=== PATIENT | female | born 1980 | race Caucasian/White ===

== ENCOUNTER 2020-03-28 01:48 | Emergency (ER) | payer BC, SELFPAY ==
--- NOTE | ~2020-03-28 | XR_ITS ---
EXAMINATION: XR ankle LT 2V DATE: 03/28/2020 02:24 INDICATION: Left ankle injury TECHNIQUE: Anteroposterior and lateral views of the left ankle were obtained. COMPARISON: None. FINDINGS: Alignment is normal. No fracture. Joint spaces are well maintained. No ankle joint effusion. The so ft tissues are unremarkable. IMPRESSION: 1. Negative left ankle radiographs. Reviewed, dictated and finalized at location A.
[2020-03-28 01:48] VITALS: BP 124/73; PULSE 75; RESP 20; TEMP 36.8; O2SAT 98
--- NOTE | 2020-03-28 02:12 | ED.LOWEXIN ---
HPI - Extremity Injury (Lower) General Chief Complaint: Extremity Injury, Lower Stated Complaint: Left foot pain Source: patient Mode of arrival: ambulatory Limitations: no limitations History of Present Illness HPI Narrative: This is a 39-year-old female that presents with left ankle pain, while lying in bed she stretched her foot and heard a pop in her left ankle and causing pain has decreased range of motion secondary to pain there is no swelling no bruising. complaint: ankle injury Onset (ago): hour(s) Type of Injury: unknown Place: home Severity: mild Relieving factors: nothing Exacerbating factors: weight bearing Related Data Home Medications Medication Instructions Recorded Confirmed No Home Medications 03/28/20 03/28/20 Allergies Allergy/AdvReac Type Severity Reaction Status Date / Time No Known Allergies Allergy Verified 03/28/20 02:04 Review of Systems Review of Systems: All systems reviewed & are unremarkable except as noted in HPI and below PMFSH Past Medical History Medical History Patient denies medical problems Exam Const: General: no acute distress and alert Orientation/consciousness: patient oriented x3 HENMT: Head: normal to inspection Eyes: Conjunctivae: conjunctivae normal Pupils: Equal, round and reactive pupils present Neck: Neck: normal visual inspection Chest: Chest palpation & inspection: normal inspection of the chest Resp: Effort & Inspection: normal respiratory effort Cardio: Rate: regular rate Rhythm: regular rhythm GI: GI Palp: Yes Soft to palpation : General: Yes no CVA tenderness Skin: General skin exam: normal color Rashes: no rashes Neuro: General: patient oriented x3, moves all extremities, no meningeal signs and no focal motor deficits Extrem: General: no pedal edema Other: Tender and Achilles area of her left heel Psych: Mental Status: mental status grossly normal Affect: normal affect Attitude: cooperative Critical Care Time Critical Care Time Critical Care Time: No Discharge Plan Discharge Clinical Impression: Ankle sprain and strain Patient Disposition: Home, Self-Care Condition: Stable Instructions: Antibiotic Form, Ankle Sprain (ED) Additional Instructions: Tylenol or Motrin for pain, follow-up with primary care physician if symptoms persist or worsen. Prescriptions: No Action No Home Medications RF: 0 Interventions: Discharge Disposition Last Done: 03/28/20 02:59 Follow-up/Referrals: Delores,Chandler Schumacher MD [Primary Care Provider] - Time of Disposition: 03:01
[2020-03-28 02:59] VITALS: BP 135/73; PULSE 75; RESP 20; O2SAT 98
--- NOTE | 2020-03-28 03:01 | PC.NURSE ---
discharge instructions reviewed page by page with pt.
== END 2020-03-28 03:03 | disposition home or self-care (01) ==
PROVIDERS: Emergency Provider Emergency Medicine; PCP Family Medicine
DX: S93.402A Sprain of unspecified ligament of left ankle, initial encounter (principal)
CPT/HCPCS: 73600; 99282; 99283

== ENCOUNTER 2025-08-17 13:01 | Emergency (ER) | payer OTHER, SELFPAY ==
--- NOTE | ~2025-08-17 | XR_ITS ---
Lumbar spine series Indication: Low back pain, no known injury Comparison: None Technique: 3 views lumbar spine Findings: 4 nonrib-bearing lumbar-type vertebral bodies. What should be L1 has rudimentary ribs. Chronic fracture right rib T12 No acute fracture. No listhesis. No pars defect. Vertebral bodies normal height. Disc spaces maintained. No significant degenerative changes. SI joints congruent. Distal sacral resection. IMPRESSION: 1. No acute findings. 2. Additional findings as above, including distal sacral resection. Reviewed, dictated and finalized at location R.
[2025-08-17 13:03] VITALS: BP 171/88; PULSE 86; RESP 20; TEMP 36.6; O2SAT 99
[2025-08-17] MEDS: methylPREDNISolone ACETATE 40 MG/ML VIAL 80 MG IM (13:28)
--- NOTE | 2025-08-17 13:51 | ED.BACK ---
HPI - Back Pain/Injury General Chief Complaint: Back Pain/Injury Stated Complaint: back pain Time Seen by Provider: 08/17/25 13:03 Source: patient and family Mode of arrival: ambulatory Limitations: no limitations History of Present Illness HPI Narrative: this is a 45-year-old female who presents with some low back pain right-sided and radiating to her right lower leg with no known injury no saddle paresthesias no neurological deficits no fever chills. The patient took some [id number] medication with minimal relief, rates her pain about 10/10 no injuries noted MD elicited complaint: back pain Pertinent past history: prior back pain Onset (ago): day(s) Timing: constant Severity: moderate Pain scale (0-10): 10 Quality: dull and spasming Location: lumbar spine Radiation: right upper leg Exacerbating factors: movement Relieving factors: immobilization Related Data Home Medications ?Medication ?Instructions ?Recorded ?Confirmed ?Last Taken ?Type clonazepam 1 mg tablet 1 mg PO Q12H 08/17/25 Unknown History cyclobenzaprine 10 mg tablet 10 mg PO Q12H 08/17/25 Unknown History escitalopram oxalate 20 mg tablet 20 mg PO DAILY 08/17/25 Unknown History furosemide 40 mg tablet 40 mg PO DAILY 08/17/25 Unknown History omeprazole 40 mg capsule,delayed 40 mg PO BID 08/17/25 Unknown History release Allergies Allergy/AdvReac Type Severity Reaction Status Date / Time cillins Allergy Intermediate Unknown Uncoded 08/17/25 13:16 Review of Systems Review of Systems: All systems reviewed & are unremarkable except as noted in HPI and below PMFSH Past Medical History Medical History (Updated 08/17/25 @ 13:54 by Seb Lozada MD) Patient denies medical problems Exam Const: General: healthy appearing and no acute distress Nutritional Appearance: well nourished and obese Orientation/consciousness: patient oriented x3 Limitations: no limitations Chest: Chest palpation & inspection: normal inspection of the chest Resp: Effort & Inspection: normal respiratory effort Auscultation: clear to auscultation bilaterally Cardio: Rate: regular rate Rhythm: regular rhythm GI: GI Palp: Yes Soft to palpation Auscultation: normal bowel sounds Neuro: General: patient oriented x3, moves all extremities, no meningeal signs and no focal motor deficits Extrem: Other: has a positive straight leg raising test on the right with no saddle paresthesias. Course Course Emergency Course: Patient received 80mg IM Depo-Medrol, x-ray performed shows no acute fractures, will be sending a medication and patient's local pharmacy. Vital Signs Vital signs: Vital Signs Temperature 36.6 C 08/17/25 13:03 Pulse Rate 86 08/17/25 13:03 Respiratory Rate 20 08/17/25 13:03 Blood Pressure 171/88 H 08/17/25 13:03 Pulse Oximetry 99 08/17/25 13:03 Oxygen Delivery Room Air 08/17/25 13:03 Temperature 36.6 C 08/17/25 13:03 Pulse Rate 86 08/17/25 13:03 Respiratory Rate 20 08/17/25 13:03 Blood Pressure 171/88 H 08/17/25 13:03 Pulse Oximetry 99 08/17/25 13:03 Oxygen Delivery Room Air 08/17/25 13:03 Critical Care Time Critical Care Time Critical Care Time: No Discharge Plan Discharge Clinical Impression: Sciatica Qualifiers: Laterality: right Qualified Code(s): M54.31 - Sciatica, right side Patient Disposition: Home Condition: Stable Instructions: Antibiotic Form, Sciatica (ED) Additional Instructions: advised patient to continue her home regimen can use a heating pad and take medicine as prescribed and follow up with primary within the next 3 to 5 days further evaluation treatment. Patient Language: Turkmen Prescriptions: New oxycodone-acetaminophen [Percocet] 5-325 mg tablet 1 tablet PO Q6H PRN (Reason: pain) Qty: 20 0RF prednisone 20 mg tablet 20 mg PO DAILY Qty: 7 0RF oxycodone-acetaminophen [Percocet] 5-325 mg tablet 1 tablet PO Q6H PRN (Reason: pain) Qty: 20 0RF prednisone 20 mg tablet 20 mg PO DAILY Qty: 7 0RF No Action cyclobenzaprine 10 mg tablet 10 mg PO Q12H omeprazole 40 mg capsule,delayed release(DR/EC) 40 mg PO BID escitalopram oxalate 20 mg tablet 20 mg PO DAILY furosemide 40 mg tablet 40 mg PO DAILY clonazepam 1 mg tablet 1 mg PO Q12H Follow-up/Referrals: Perfecto,Luisa Vigil MD [Primary Care Provider, Unknown] Time of Disposition: 13:58
--- NOTE | 2025-08-17 13:57 | PC.NURSE ---
On 08/17/25, the student, [darlene edouard ], provided care and completed jslyhl documentation on this patient. I have reviewed the student's documentation and agree with the findings.
== END 2025-08-17 14:03 | disposition home or self-care (01) ==
PROVIDERS: Emergency Provider Emergency Medicine; PCP Family Medicine
DX: M54.31 Sciatica, right side (principal); Z79.899 Other long term (current) drug therapy
CPT/HCPCS: 72100; 96372; 99283; J1010